=== PATIENT | female | born 1985 | race Two or more races ===

== ENCOUNTER 2024-06-23 14:22 | Emergency (ER) | payer OTHER ==
[~2024-06-23] VITALS: Ht 165.1 cm; Wt 113.4 kg
[2024-06-23] MEDS ORDERED: SYNTHROID75 MCG PO (15:16)
[2024-06-23] MEDS ORDERED: AMLODIPINE-BEN1 EAC2 PO (15:16)
[2024-06-23] MEDS ORDERED: ROSUVASTATIN CAL5 MG PO (15:16)
[2024-06-23] MEDS ORDERED: RINGERS SOLUTION,LACTATED 1,000 ML IV STA (15:48)
[2024-06-23] MEDS ORDERED: MEPERIDINE HCL/PF 50 MG/ML VIAL IM STA (15:50)
[2024-06-23] MEDS ORDERED: PROMETHAZINE HCL 50 MG/ML AMPUL IM STA (15:51)
[2024-06-23] MEDS ORDERED: CIPROFLOXACIN IN 5 % DEXTROSE 400 MG/200 ML PIGGYBAG IV STA (15:52)
[2024-06-23] MEDS ORDERED: METRONIDAZOLE/SODIUM CHLORIDE 500 MG/100 ML PIGGYBACK IV STA (15:52)
[2024-06-23 17:02] LABS: MEAN CELL VOLUME 89.4 fL (80.00-100.00); MEAN CORPUSCULAR HEMOGLOBIN 31.3 pg (27.00-32.0); PLATELET COUNT 433 K/uL (150-450); RED BLOOD COUNT 4.47 M/uL (4.00-6.00); RED CELL DISTRIBUTION WIDTH 13.5 % (11.5-14.5)
[2024-06-23 17:14] LABS: URINE APPEARANCE Clear; URINE BILIRRUBIN Negative (NEGATIVE); URINE BLOOD Negative; URINE COLOR Yellow; URINE GLUCOSE Negative (NEGATIVE); URINE KETONE Trace (NEGATIVE); URINE LEUKOCYTE Negative; URINE NITRATE Negative; URINE PROTEIN Trace (NEGATIVE)
[2024-06-23 17:17] LABS: URINE BACTERIA 411.2 uL (0.0-1933); URINE RBC 3.5 uL (0.0-20.8); URINE WBC 11.8 uL (0.0-23.2)
[2024-06-23 17:26] LABS: ALBUMIN 3.1 gm/dL (3.4-5.0); BILIRUBIN TOTAL 0.82 mg/dL (0.3-1.2); CREATININE SERUM 0.76 mg/dL (0.55-1.02); GFR 84.29; POTASSIUM 4.54 mEq/L (3.5-5.1)
[2024-06-23 17:38] LABS: BILIRUBIN,CONJUGATED 0.14 mg/dL (0.0-0.2); BILIRUBIN,UNCONJUGATED 0.68 mg/dL (0.0-0.6)
== END 2024-06-23 23:50 | disposition home or self-care (01) ==
LOC: ER 14:24
PROVIDERS: General Practice
DX: D25.9 Leiomyoma of uterus, unspecified (principal); R10.2 Pelvic and perineal pain; I10 Essential (primary) hypertension; Z88.6 Allergy status to analgesic agent